=== PATIENT | male | born 1965 | race Caucasian/White ===

== ENCOUNTER 2025-05-07 15:29 | Outpatient (OUT) | payer MEDICAID, SELFPAY ==
[2025-05-07 16:12] LABS: Hematocrit 36.9 % (42.0-54.0); Hemoglobin 12.9 g/dL (14.0-18.0); Mean Corpuscular HGB Conc 35.0 g/dL (29.9-35.2); Mean Corpuscular Hemoglobin 31.4 pg (25.9-34.0); Mean Corpuscular Volume 89.8 fL (80.0-94.0); Platelet Count 65 10^3/uL (150-450); Red Blood Count 4.11 10^6/uL (4.70-6.10); White Blood Count 2.5 10^3/uL (4.0-11.0)
[2025-05-07 16:30] LABS: Basophils Abs Manual 0.00 10^3/uL (0.00-0.10); Basophils Percent Manual 0.0 % (0.2-2.0); Eosinophils Absolute Manual 0.10 10^3/uL (0.00-0.70); Eosinophils Percent Manual 4.0 % (0.9-7.0); Lymphocytes Absolute Manual 0.65 10^3/uL (1.20-3.80); Lymphocytes Percent Manual 26.0 % (20.5-60.0); Monocytes Absolute Manual 0.22 10^3/uL (0.30-0.80); Monocytes Percent Manual 9.0 % (1.7-12.0); Segmented Neut Absolute Manual 1.52 10^3/uL (1.4-6.5); Segmented Neutrophils % Manual 61.0 (43.0-75.0)
[2025-05-07 17:00] LABS: Alanine Aminotransferase 143 U/L (16-63); Albumin Globulin Ratio 0.6; Albumin Level 2.5 g/dL (3.4-5.0); Alkaline Phosphatase 147 U/L (46-116); Anion Gap 11.5; Aspartate Amino Transferase 133 U/L (15-37); Blood Urea Nitrogen 13.0 mg/dL (7.0-18.0); Calcium 8.7 mg/dL (8.5-10.1); Carbon Dioxide 26.7 mmol/L (21.0-32.0); Chloride 107 mmol/L (98-107); Estimated GFR (African America >60 (>=60 mL/min/1.73m^2); Estimated GFR (Non-African Ame >60 (>=60 mL/min/1.73m^2); Globulin 4.4 g/dL; Glucose 100 mg/dL (74-106); Potassium 4.2 mmol/L (3.5-5.1); Sodium 141 mmol/L (136-145); Total Protein 6.9 g/dL (6.4-8.2)
== END 2025-05-07 15:30 | disposition home or self-care (01) ==
LOC: LAB 15:36
PROVIDERS: Visit Provider Nurse Practitioner Primary Care
DX: F14.20 Cocaine dependence, uncomplicated (principal); F12.20 Cannabis dependence, uncomplicated
CPT/HCPCS: 36415; 80053; 85007; 85027; 86317; 87340; 87389; 87517; 87522; 87902